=== PATIENT | male | born 2000 | race African-American/Black ===

== ENCOUNTER 2021-11-29 16:46 | Emergency (ER) | payer SELFPAY ==
[~2021-11-29] VITALS: Ht 182.9 cm; Wt 77.0 kg
[2021-11-29] MEDS ORDERED: ACETAMINOPHEN 325MG TABLET PO ONE (17:15)
[2021-11-29] MEDS ORDERED: TETANUS, DIPHTHERIA, PERTUSSIS VAC/PF 0.5ML (>10YR OLD) IM ONE (17:15)
[2021-11-29] MEDS ORDERED: IBUP-2029 MT (18:58)
[2021-11-29 19:15] VITALS: BP 122/78
== END 2021-11-29 19:38 | disposition home or self-care (01) ==
LOC: ER 16:53
DX: S09.8XXA Other specified injuries of head, initial encounter (principal); S20.212A Contusion of left front wall of thorax, initial encounter; S60.512A Abrasion of left hand, initial encounter; S60.511A Abrasion of right hand, initial encounter; S60.812A Abrasion of left wrist, initial encounter; S60.811A Abrasion of right wrist, initial encounter; Y04.0XXA Assault by unarmed brawl or fight, initial encounter; Y93.89 Activity, other specified; Y92.488 Other paved roadways as the place of occurrence of the external cause
CPT/HCPCS: 71111; 73110; 90715; 99284